=== PATIENT | male | born 1980 | race Caucasian/White ===

== ENCOUNTER 2016-12-30 20:41 | Emergency (ER) | payer MEDICAID ==
[2016-12-31 00:32] VITALS: BP 149/93
== END 2016-12-31 00:25 | disposition home or self-care (01) ==
LOC: ED 20:41
DX: S63.91XA Sprain of unspecified part of right wrist and hand, initial encounter (principal); E78.00 Pure hypercholesterolemia, unspecified; I10 Essential (primary) hypertension; W22.01XA Walked into wall, initial encounter; Y93.89 Activity, other specified; Y99.8 Other external cause status; Y92.89 Other specified places as the place of occurrence of the external cause

== ENCOUNTER 2017-01-13 19:37 | Emergency (ER) | payer MEDICAID ==
[2017-01-13 21:00] VITALS: BP 134/95
== END 2017-01-13 21:00 | disposition home or self-care (01) ==
LOC: ED 19:37
DX: M79.641 Pain in right hand (principal); I10 Essential (primary) hypertension; E78.00 Pure hypercholesterolemia, unspecified
CPT/HCPCS: A4570

== ENCOUNTER 2017-03-23 18:54 | Emergency (ER) | payer MEDICAID ==
[~2017-03-23] VITALS: Ht 167.6 cm; Wt 86.2 kg
[2017-03-23 20:32] LABS: BASOPHIL % 0.5 % (0-2); PLATELET COUNT 271 x10^3mcL (130-400); RED CELL DISTRIBUTION WIDTH 14.2 % (11.5-14.5)
[2017-03-23 20:37] LABS: CALCIUM 9.5 mg/dL (8.5-10.1); CARBON DIOXIDE 29.7 mmol/L (21-32); CHLORIDE SERUM 102 mmol/L (98-107); CREATININE SERUM 1.1 mg/dL (0.7-1.3); GFR1 > 60 mL/min; GLUCOSE SERUM 168 mg/dL (74-106); POTASSIUM SERUM 3.1 mmol/L (3.5-5.1); SODIUM SERUM 140 mmol/L (136-145)
[2017-03-23 20:50] LABS: ALKALINE PHOSPHATASE 77 U/L (46-116); ALT/SGPT 120 U/L (16-63); AST/SGOT 35 U/L (15-37); BILIRUBIN TOTAL 0.4 mg/dL (0.20-1.00); FREE T4 0.95 ng/dL (0.76-1.46); TOTAL PROTEIN, SERUM 7.8 g/dL (6.4-8.2)
[2017-03-23 21:04] LABS: microscopic required? YES; urine erythrocyte NEGATIVE (NEGATIVE)
[2017-03-24 01:44] VITALS: BP 120/82
== END 2017-03-24 01:44 | disposition home or self-care (01) ==
LOC: ED 18:54
PROVIDERS: Emergency Medicine
DX: K52.9 Noninfective gastroenteritis and colitis, unspecified (principal); I10 Essential (primary) hypertension; E78.00 Pure hypercholesterolemia, unspecified
CPT/HCPCS: 84439; J2270; J7030

== ENCOUNTER 2018-04-02 13:04 | Emergency (ER) | payer OTHER ==
[~2018-04-02] VITALS: Ht 167.6 cm; Wt 88.5 kg
[2018-04-02 13:10] VITALS: Ht 167.6 cm; Wt 88.5 kg
[2018-04-02 13:53] LABS: PLATELET COUNT 352 x10^3mcL (130-400)
[2018-04-02 14:04] LABS: ALBUMIN 4.5 g/dL (3.4-5.0); ALKALINE PHOSPHATASE 90 U/L (46-116); ALT/SGPT 105 U/L (16-63); AST/SGOT 32 U/L (15-37); BILIRUBIN TOTAL 0.4 mg/dL (0.20-1.00); CALCIUM 9.5 mg/dL (8.5-10.1); CARBON DIOXIDE 28.3 mmol/L (21-32); CHLORIDE SERUM 100 mmol/L (98-107); GLUCOSE SERUM 144 mg/dL (74-106); POTASSIUM SERUM 3.8 mmol/L (3.5-5.1); SODIUM SERUM 138 mmol/L (136-145)
[2018-04-02 14:09] LABS: METAMYELOCTE 1 % (0-2); MONOCYTE 3 % (0-7); MYELOCYTE 1 % (0-2); PLATELET MORPHOLOGY PLATELETS NORMAL; SEGMENTED NEUTROPHILS 80 % (37-75); rbc morphology (normal/abnorm) NORMAL (NORMAL)
[2018-04-02 14:12] LABS: CHOLESTEROL 227 mg/dL (<200); TOTAL PROTEIN, SERUM 8.9 g/dL (6.4-8.2)
[2018-04-02 14:52] LABS: CREATININE SERUM 1.1 mg/dL (0.7-1.3); GFR1 > 60 mL/min
[2018-04-02 15:30] VITALS: BP 136/86
== END 2018-04-02 15:30 | disposition home or self-care (01) ==
LOC: ED 13:04
PROVIDERS: Specialist
DX: R20.2 Paresthesia of skin (principal); R42 Dizziness and giddiness; I10 Essential (primary) hypertension; E78.00 Pure hypercholesterolemia, unspecified
CPT/HCPCS: 36415; 82962; G0480; Q0092

== ENCOUNTER 2018-11-27 11:30 | Emergency (ER) | payer MEDICAID ==
[~2018-11-27] VITALS: Ht 167.6 cm; Wt 90.7 kg
[2018-11-27 11:35] VITALS: Ht 167.6 cm; Wt 90.7 kg
[2018-11-27 12:54] LABS: BASOPHIL % 1.1 % (0-2); PLATELET COUNT 287 x10^3mcL (130-400); RED CELL DISTRIBUTION WIDTH 13.9 % (11.5-14.5)
[2018-11-27 13:20] LABS: CALCIUM 9.7 mg/dL (8.5-10.1); CARBON DIOXIDE 33.4 mmol/L (21-32); CHLORIDE SERUM 102 mmol/L (98-107); GFR1 > 60 mL/min; GLUCOSE SERUM 101 mg/dL (74-106); POTASSIUM SERUM 3.6 mmol/L (3.5-5.1); SODIUM SERUM 140 mmol/L (136-145)
[2018-11-27 13:27] LABS: ALBUMIN 4.3 g/dL (3.4-5.0); ALKALINE PHOSPHATASE 92 U/L (46-116); ALT/SGPT 140 U/L (16-63); AST/SGOT 45 U/L (15-37); BILIRUBIN TOTAL 0.49 mg/dL (0.20-1.00); LIPASE 154 IU/L (73-393)
[2018-11-27 13:32] LABS: TOTAL PROTEIN, SERUM 8.5 g/dL (6.4-8.2)
[2018-11-27 15:10] VITALS: BP 135/81
== END 2018-11-27 15:10 | disposition home or self-care (01) ==
LOC: ED 11:30
PROVIDERS: Emergency Medicine
DX: K21.9 Gastro-esophageal reflux disease without esophagitis (principal); R07.2 Precordial pain; E78.00 Pure hypercholesterolemia, unspecified; I10 Essential (primary) hypertension
CPT/HCPCS: 36415

== ENCOUNTER 2018-12-01 22:06 | Emergency (ER) | payer MEDICAID ==
[~2018-12-01] VITALS: Ht 167.6 cm; Wt 91.6 kg
[2018-12-01 22:11] VITALS: Ht 167.6 cm; Wt 91.6 kg
[2018-12-02 00:34] VITALS: BP 137/78
== END 2018-12-02 00:34 | disposition home or self-care (01) ==
LOC: ED 22:06
DX: J20.9 Acute bronchitis, unspecified (principal); J03.90 Acute tonsillitis, unspecified; I10 Essential (primary) hypertension; E11.9 Type 2 diabetes mellitus without complications; E78.00 Pure hypercholesterolemia, unspecified; Z98.890 Other specified postprocedural states

== ENCOUNTER 2019-08-31 12:47 | Emergency (ER) | payer MEDICAID ==
[~2019-08-31] VITALS: Ht 167.6 cm; Wt 89.4 kg
[2019-08-31 12:58] VITALS: Ht 167.6 cm; Wt 89.4 kg
[2019-08-31 14:41] VITALS: BP 134/77
== END 2019-08-31 14:41 | disposition home or self-care (01) ==
LOC: ED 12:47
DX: S06.0X0A Concussion without loss of consciousness, initial encounter (principal); S13.4XXA Sprain of ligaments of cervical spine, initial encounter; I10 Essential (primary) hypertension; E78.00 Pure hypercholesterolemia, unspecified; K21.9 Gastro-esophageal reflux disease without esophagitis; W18.09XA Striking against other object with subsequent fall, initial encounter; Y93.89 Activity, other specified; Y92.89 Other specified places as the place of occurrence of the external cause; Y99.8 Other external cause status

== ENCOUNTER 2019-11-06 18:41 | Emergency (ER) | payer MEDICAID, SELFPAY ==
[~2019-11-06] VITALS: Ht 167.6 cm; Wt 83.9 kg
[2019-11-06 18:43] VITALS: Ht 167.6 cm; Wt 83.9 kg
[2019-11-06 20:32] LABS: BASOPHIL % 0.5 % (0-2); PLATELET COUNT 291 x10^3mcL (130-400)
[2019-11-06 20:47] LABS: CALCIUM 9.1 mg/dL (8.5-10.1); CARBON DIOXIDE 27.9 mmol/L (21-32); CHLORIDE SERUM 103 mmol/L (98-107); CREATININE SERUM 0.9 mg/dL (0.7-1.3); GFR1 > 60 mL/min; GLUCOSE SERUM 90 mg/dL (74-106); POTASSIUM SERUM 3.5 mmol/L (3.5-5.1); SODIUM SERUM 142 mmol/L (136-145)
[2019-11-06 20:52] LABS: ALBUMIN 4.2 g/dL (3.4-5.0); ALKALINE PHOSPHATASE 66 U/L (46-116); ALT/SGPT 84 U/L (16-63); AST/SGOT 29 U/L (15-37); BILIRUBIN TOTAL 0.5 mg/dL (0.20-1.00); LIPASE 144 IU/L (73-393); TOTAL PROTEIN, SERUM 8.1 g/dL (6.4-8.2)
[2019-11-06 22:00] VITALS: BP 128/79
== END 2019-11-06 22:25 | disposition home or self-care (01) ==
LOC: ED 18:41
PROVIDERS: Emergency Medicine
DX: R07.89 Other chest pain (principal); R06.02 Shortness of breath; R19.7 Diarrhea, unspecified; I10 Essential (primary) hypertension; E78.00 Pure hypercholesterolemia, unspecified; K21.9 Gastro-esophageal reflux disease without esophagitis; Z20.828 Contact with and (suspected) exposure to other viral communicable diseases
CPT/HCPCS: Q0092; U0003-CS

== ENCOUNTER 2020-04-23 17:08 | Emergency (ER) | payer MEDICAID ==
[~2020-04-23] VITALS: Ht 167.6 cm; Wt 90.7 kg
[2020-04-23 17:27] VITALS: BP 152/89; Ht 167.6 cm; Wt 90.7 kg
== END 2020-04-23 18:09 | disposition home or self-care (01) ==
LOC: ED 17:08
DX: S39.012A Strain of muscle, fascia and tendon of lower back, initial encounter (principal); W17.89XA Other fall from one level to another, initial encounter; Y93.89 Activity, other specified; Y92.89 Other specified places as the place of occurrence of the external cause; Y99.8 Other external cause status